=== PATIENT | female | born 1930 | race Caucasian/White ===

== ENCOUNTER 2019-02-26 11:12 | Inpatient (IN) ==
[2019-02-26] MEDS ORDERED: CARDIZEM IV ONE (11:30)
[2019-02-26] MEDS ORDERED: NS 500 ML IV ONE (11:36)
[2019-02-26 12:01] LABS: BASO# 0.04 X1000 (0.0-0.2); BASO% 0.4 % (0.0-0.8); EOS# 0.06 X1000 (0.0-0.7); EOS% 0.7 % (0.0-10.0); HEMATOCRIT 44.6 % (37.0-47.0); HEMOGLOBIN 14.4 g/dL (12.0-16.0); IMM GRAN# 0.02 X1000 (0.0-0.04); IMM GRAN% 0.2 % (0.0-0.5); LYMPH# 1.71 X1000 (1.2-3.4); LYMPH% 18.9 % (20.5-51.1); MCH 28.2 PG (27-31); MCHC 32.3 g/dL (33-37); MCV 87.3 FL (81-99); MONO# 0.62 X1000 (0.11-0.59); MONO% 6.9 % (1.7-9.3); MPV 12.3 FL (7.4-10.4); NEUT# 6.58 X1000 (1.4-6.5); NEUT% 72.9 % (42.2-75.2); PLT 199 X1000 (130-400); RBC 5.11 XMIL (4.2-5.4); RDW 15.1 % (11.5-14.5); WBC 9.03 X1000 (4.8-10.8)
[2019-02-26 12:26] LABS: ALB/GLOB RATIO 1.1; ALBUMIN 3.7 g/dL (3.5-5.0); CALCIUM 8.9 mg/dL (8.8-10.2); CREATININE 1.6 mg/dL (0.5-0.9); POTASSIUM 5.2 mmol/L (3.5-5.1); TOTAL BILIRUBIN 0.41 mg/dL (0.20-1.00)
[2019-02-26] MEDS ORDERED: HEPARIN IV ONE (13:07)
[2019-02-26] MEDS ORDERED: HEPARIN IV PRN (13:07)
[2019-02-26] MEDS ORDERED: HEPARIN 25,000 UNITS/D5W 25,000 UNIT/250 ML IV.SOLN IV SCH (13:15)
--- NOTE | 2019-02-26 13:27 | EKG Report ---
Test Performed on : 02/26/2019 11:42:13 AM Test Reason : CP Blood Pressure : / mmHG Vent. Rate : 158 BPM Atrial Rate : 158 BPM P-R Int : 166 ms QRS Dur : 068 ms QT Int : 304 ms P-R-T Axes : 093 -50 138 degrees QTc Int : 492 ms Sinus tachycardia. 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
--- NOTE | 2019-02-26 13:33 | PROVIDER DOCUMENTATION ---
This chart was entered by Lydia Downey Scribe, acting as scribe for Ana Askew MD. HPI-Chest Pain - General Stated Complaint: CP Time Seen by Provider: 02/26/19 11:17 Source: patient, EMS ([facility]) Allergies/Adverse Reactions: Patient Allergies Allergy/AdvReac Type Severity Reaction Status Date / Time No Known Allergies Allergy Verified 02/20/18 21:51 Home Medications: Home Medication List Medication Instructions Recorded Confirmed Last Taken Type ATORVAstatin [Lipitor] 20 mg PO HS #0 tablet 08/05/13 11/20/14 11/19/14 Rx Clopidogrel [Plavix] 75 mg PO DAILY #0 tablet 08/05/13 11/20/14 11/20/14 Rx Furosemide [Lasix] 40 mg PO DAILY #0 tablet 08/05/13 11/20/14 11/20/14 Rx Memantine [Namenda] 10 mg PO BID #0 tablet 08/05/13 11/20/14 11/20/14 Rx Mirtazapine [Remeron] 30 mg PO HS #0 tablet 08/05/13 11/20/14 11/19/14 Rx Propranolol [Inderal] 60 mg PO DAILY #0 tablet 08/05/13 11/20/14 11/20/14 Rx Rivastigmine [Exelon 9.5MG/24Hrs] 1 each TD DAILY #0 patch 08/05/13 11/20/14 11/20/14 Rx Meloxicam [Mobic] 7.5 mg PO BID 11/20/14 11/20/14 11/20/14 History Hydrocodone/Acetaminophen [Pearson 1 each PO Q6H PRN PRN #15 tablet 09/08/15 Unknown Rx 5-325 Tablet] Losartan Potassium [Cozaar] 25 mg PO DAILY #30 tablet 09/08/15 Unknown Rx Cyclobenzaprine HCl [Flexeril] 5 mg PO BID PRN #15 tab 02/20/18 Unknown Rx - History of Present Illness-CP Nature of Presenting Problem: 88 yowf presents to the ed with c/o chest pain bilateral arm pain, back pain, nausea and diaphoresis with onset last night. pt family called ems this am ([facility]) due to sx when they went to check on the pt in her home. pt on exam is lying in bed and looks to be in no distress Location: reports: other (left anterior) Chest Pain Radiation: reports: arms (bilateral), back Quality of Pain: reports: aching Severity in ED: mild Onset/Duration: last night Timing: still present, improving, intermittent Context/Activities at Onset: reports: light activity Modifying Factors: improves with: nothing Associated Symptoms: reports: back pain, diaphoresis, nausea. denies: dizziness, shortness of breath, vomiting Nitro Today/Relief: 0.4 mg x 2, provided by EMS, mild relief Aspirin Treatment Today: 325 mg x 1, provided by ED Prior Chest Pain/Cardiac Workup: reports: cardiac cath, other (cabg) Similar Symptoms Previously?: Yes Recently Seen Here or By Another Healthcare Provider: No Review of Systems - Adult - REVIEW OF SYSTEMS - ADULT Constitutional: reports: no symptoms reported Eyes: reports: no symptoms reported Ears, Nose, Mouth & Throat: reports: no symptoms reported Cardiovascular: reports: see HPI, chest pain, palpitations. denies: syncope Respiratory: denies: shortness of breath, wheezing Gastrointestinal: reports: nausea. denies: abdominal pain, diarrhea, vomiting Genitourinary: reports: no symptoms reported Musculoskeletal: reports: see HPI, back pain, other (bilateral arm pain) Integumentary: reports: no symptoms reported Neurological: denies: dizziness/vertigo, headache/migraines Psychiatric: reports: no symptoms reported Endocrine: reports: no symptoms reported Hematologic/Lymphatic: reports: no symptoms reported Allergic/Immunologic: reports: no symptoms reported All Other Systems: Reviewed and Negative Past History - Adult - PAST MEDICAL HISTORY-ADULT Review of Records: reports: Old Records Reviewed, Nursing Assessment Review, Medications Reviewed, Social history reviewed & non-contributory. Cardiovascular: reports: CAD, HTN Respiratory: reports: denies history Gastrointestinal: reports: denies history Genitourinary: reports: denies history Musculoskeletal: reports: denies history Neurological: reports: dementia Psychiatric: reports: denies history Endocrine/Immune: reports: cancer (breast) Other Conditions: reports: denies history - PRIOR SURGERIES/PROCEDURES Surgical/Procedure History: reports: CABG, other (lumpectomy) - IMMUNIZATION STATUS Childhood Immunizations: See Nurse Assessment Flu Vaccine: See Nurse Assessment - FAMILY HISTORY Family History: reviewed, not pertinent - SOCIAL HISTORY Smoking: denies Substance Use: denies Living Situation: alone Physical Exam-General - PHYSICAL EXAM-ADULT Initial Vital Signs Reviewed: Yes (noted bp-92/73 hr-156) - CONSTITUTIONAL General Appearance: appears well, alert, no apparent distress, obese - EYES Eyes: PERRL/EOMI, pink conjunctivae - HEAD, EARS, NOSE, MOUTH & THROAT HENMT: moist mucous membranes - NECK Neck: non-tender, full range of motion, supple, normal inspection - RESPIRATORY Respiratory: chest non-tender, lungs clear, normal breath sounds - CARDIOVASCULAR Cardiovascular: other (tachycardia with irregular heart beats) - CHEST (BREASTS) Chest/Breast: other (well healed cabg scar) - GASTROINTESTINAL (ABDOMEN) Abdominal Exam: normal bowel sounds, non tender, soft, other (c/o nausea) - GENITOURINARY Female Genitalia/Pelvic Exam: deferred Rectal Exam: deferred Hemoccult Exam: deferred - LYMPHATIC Lymphatic: no adenopathy - MUSCULOSKELETAL Back Exam: no CVA tenderness, no vertebral tenderness Extremity: normal range of motion, non-tender, normal inspection - SKIN Integumentary: normal color, normal turgor, warm/dry - NEUROLOGIC Neurologic: grossly normal - PSYCHIATRIC Psych/Mental Status: normal mood/affect, normal thought content, normal thought process, oriented x 3 - HEART Score HEART Score: History: Highly Suspicious HEART Score: ECG: Non-Specific Repolarization Disturbance/LBBB/PM HEART Score: Age: > or = 65 Years HEART Score: Risk Factors for Atherosclerotic Disease: > or = 3 Risk Factors or History of Atherosclerotic Disease HEART Score: Troponin: > or = 3x Normal Limit Total HEART Score:: 9 Progress - PLAN OF CARE/RESULTS Progress/Plan/Lab Results: Vital Signs - 8 hr 02/26/19 11:15 02/26/19 12:02 Temperature 97.6 F Pulse Rate 161 H 72 Respiratory Rate 22 20 Blood Pressure 101/58 113/54 O2 Sat by Pulse Oximetry 96 95 Laboratory Results - last 24 hr 02/26/19 02/26/19 02/26/19 11:40 11:40 11:40 WBC 9.03 RBC 5.11 Hgb 14.4 Hct 44.6 MCV 87.3 MCH 28.2 MCHC 32.3 L RDW Std Deviation 15.1 H Plt Count 199 MPV 12.3 H Immature Gran % (Auto) 0.2 Neut % (Auto) 72.9 Lymph % (Auto) 18.9 L Lumpkin % (Auto) 6.9 Eos % (Auto) 0.7 Baso % (Auto) 0.4 Immature Gran # (Auto) 0.02 Neut # (Auto) 6.58 H Lymph # (Auto) 1.71 [place]kin # (Auto) 0.62 H Eos # (Auto) 0.06 Baso # (Auto) 0.04 Sodium 137 Potassium 5.2 H Chloride 103 Carbon Dioxide 20 L Anion Gap 14 BUN 31 H Creatinine 1.6 H Estimated GFR/1.73 m2 30 BUN/Creatinine Ratio 19 Glucose 134 H Calculated Osmolality 282 Calcium 8.9 Total Bilirubin 0.41 AST 55 H ALT 16 Alkaline Phosphatase 86 Total Protein 7.0 Albumin 3.7 Globulin 3.3 Albumin/Globulin Ratio 1.1 Amylase 73 Lipase 47 TSH 1.16 Orders Category Date Time Status Hold Pressure Notice (Heparin Protocol) ORDERED Care 02/26/19 13:08 Active Observe for Bleeding (Heparin Protocol) ORDERED Care 02/26/19 13:08 Active Saline Loc DIRECTED Care 02/26/19 11:35 Active Weigh Patient NOW Care 02/26/19 13:08 Active NPO Diet 02/26/19 11:35 Active cxr [CHEST-PORTABLE] [RAD] Stat Exams 02/26/19 14:01 Ordered AMYLASE [CHEM] Stat Lab 02/26/19 11:40 Completed BASIC METABOLIC PANEL [CHEM] Routine Lab 02/27/19 06:00 Ordered CBC WITH DIFF [HEME] Lab 02/27/19 06:00 Uncollected CBC WITH DIFF [HEME] Lab 02/28/19 06:00 Uncollected CBC WITH DIFF [HEME] Lab 03/01/19 06:00 Uncollected CBC WITH ELECTRONIC DIFF [HEME] Stat Lab 02/26/19 11:40 Completed COMPREHENSIVE METABOLIC PANEL [CHEM] Stat Lab 02/26/19 11:40 Completed LIPASE [CHEM] Stat Lab 02/26/19 11:40 Completed MAGNESIUM [CHEM] Routine Lab 02/27/19 06:00 Ordered PRO B-NATRIURETIC PEPTIDE Routine Lab 02/26/19 14:09 Ordered PROTIME WITH INR [COAG] Stat Lab 02/26/19 11:40 Received PTT HEPARIN PROTOCOL [COAG] Lab 02/26/19 11:40 Received PTT HEPARIN PROTOCOL [COAG] Lab 02/26/19 20:00 Uncollected PTT HEPARIN PROTOCOL [COAG] Lab 02/27/19 02:00 Uncollected PTT HEPARIN PROTOCOL [COAG] Lab 02/27/19 08:00 Uncollected PTT [COAG] Stat Lab 02/26/19 11:40 Received TROPONIN T HIGH SENSITIVITY Stat Lab 02/26/19 11:40 Received TSH Stat Lab 02/26/19 11:40 Completed URINALYSIS W/POSS RFLX CULT [URINALYSIS] Stat Lab 02/26/19 11:35 Uncollected 0.9% Sodium Chloride Inj [Ns] 500 ml Med 02/26/19 11:36 Discontinued IV 999 mls/hr Apixaban [Eliquis] Med 02/26/19 14:15 Active 2.5 mg PO BID Aspirin Med 02/26/19 14:15 Discontinued 81 mg PO DAILY Clopidogrel [Plavix] Med 02/27/19 09:00 Ordered 75 mg PO DAILY Diltiazem [Cardizem] Med 02/26/19 11:30 Discontinued 10 mg IV NOW ONE Furosemide [Lasix] Med 02/26/19 14:06 Stop Req 20 mg IV NOW ONE Furosemide [Lasix] Med 02/26/19 14:15 Ordered 40 mg IV DAILY Heparin Med 02/26/19 13:07 Discontinued See Dose Instructions IV NOW ONE Heparin Med 02/26/19 13:07 Discontinued See Dose Instructions IV PRN PRN Heparin 25,000 Units/D5w Med 02/26/19 13:15 Discontinued 25,000 unit in 250 ml IV 12 unit/kg/hr Losartan [Cozaar] Med 02/27/19 09:00 Ordered 25 mg PO DAILY Metoprolol [Lopressor] Med 02/26/19 14:15 Active 50 mg PO BID EKG [EKG] Routine Ther 02/27/19 06:00 Ordered EKG [EKG] Stat Ther 02/26/19 11:42 Draft EKG [EKG] Stat Ther 02/26/19 13:33 Draft Echo Spec/Color Doppler Routine Ther 02/26/19 14:02 Ordered Result Diagrams: 02/26/19 11:40 02/26/19 11:40 - REASSESSMENT Reassessment #1 Time Reassessed: 12:52 (pt has elevated trop and dr askew is at bedside speaking with pt and family) Status: unchanged - EKG 1 Time of EKG reading by physician:: 11:42 EKG Read and Signed by:: Ana Askew EKG Interpretation (*Must complete 3 of following elements*): Abnormal Rate: 158 Rhythm: sinus tachycardia Vista: left (deviation) QRS: normal MA Interval: normal Comments: marked ST abnormality, poss inferior subendocardial injury - CONSULTS/PCP/HOSPITALIST Notification #1 *Consult/PCP/Hospitalist*: Dr Hanks Time Discussed: 13:30 Consult Disposition: Will see in ED (Dr Hanks saw patient in ER< wanted patient admitted to hospital) #2 Consult: Dr Evangelista Consult Disposition: Will see in ED (he said he will see patient in ER) Departure - Departure Date of Disposition Decision: 02/26/19 Time of Disposition Decision: 13:33 DIAGNOSIS: NSTEMI (non-ST elevated myocardial infarction) Disposition: ADMITTED INPATIENT 09 Certified Medical Emergency: Emergent Condition: Good Referrals and Follow-Ups: Yadi Evangelista MD [Primary Care Provider] - - Critical Care Note This patient required my direct & personal management of CC.: Yes Total Time (mins): 36 Critical Care Statement: This patient required my direct personal management to treat or rule out processes, the absence of which, could potentiallly result in sudden, clinically significant life or limb threatening deterioration. Attestation - Physician/ MADELIN Attestation Patient care was provided by Advanced Practice Provider:: No The physician spent face to face time with patient:: Yes Advanced Practice Provider documentation review:: Supervising physician onsite and consulted in the evaluation and care of this patient. The physician did have a face to face encounter with the patient. This chart was documented by the indicated scribe, (Lydia Downey Scribe) and accurately reflects the services I performed and decisions made by Otilio pinedo Mai Huu, MD, as attested by the provider's signature.
--- NOTE | 2019-02-26 14:03 | EKG Report ---
Test Performed on : 02/26/2019 1:56:00 PM Test Reason : repeat Blood Pressure : / mmHG Vent. Rate : 078 BPM Atrial Rate : 078 BPM P-R Int : 184 ms QRS Dur : 074 ms QT Int : 416 ms P-R-T Axes : 026 -20 138 degrees QTc Int : 474 ms Normal sinus rhythm. ST & T wave abnormality, consider anterolateral ischemia Prolonged QT Abnormal ECG When compared with ECG of 26-FEB-2019 11:42, (Unconfirmed) Vent. rate has decreased BY [address] less depressed in Inferior leads T wave inversion no longer evident in Inferior leads Unconfirmed Result
[2019-02-26] MEDS ORDERED: LASIX IV ONE ×2 (14:06→17:08)
[2019-02-26] MEDS ORDERED: ELIQUIS PO SCH (14:15)
[2019-02-26] MEDS ORDERED: LASIX IV SCH (14:15)
[2019-02-26] MEDS ORDERED: LOPRESSOR PO SCH (14:15)
[2019-02-26] MEDS ORDERED: ASPIRIN PO SCH (14:15)
[2019-02-26 14:17] LABS: INR 1.06; PROTIME 13.9 Seconds (11.0-16.0)
[2019-02-26 14:18] LABS: PTT 28.3 Seconds (22.3-41.8)
--- NOTE | 2019-02-26 14:24 | Diag Imaging Result Doc PS360 ---
EXAM: CHEST-PORTABLE 02/26/2019 HISTORY: dyspnea TECHNIQUE: AP portable at 1410 COMMENT: There is platelike opacity present in the right middle lobe. This was also present on 12/19/2016 and is presumably fibrotic. The inspiration is actually less optimal on the current study than on the previous. IMPRESSION: No acute disease. Electronically signed by Luc Campbell 02/26/2019 2:22 PM
--- NOTE | 2019-02-26 14:44 | CARDIOLOGY CONSULTATION ---
DATE: 02/26/2019 HISTORY OF PRESENT ILLNESS: Ms Reynoso is an 88-year-old lady, who has had coronary artery bypass grafting, 28 years back at [facility], and subsequently 16 years back had intervention there performed as well. She has been doing fairly well. Has been active at home. For the last week or so, she has been complaining of not feeling well and fatigued. Last night and this morning she complained of having retrosternal chest discomfort with significant palpitations and heaviness in both arms. She broke out in a cold sweat. She was brought by EMS to the emergency room, was noted to be in atrial fibrillation with rapid ventricular rate. She was given Cardizem 10 mg IV and patient converted to sinus rhythm. Electrocardiogram revealed atrial fibrillation with ST-T depressions in the anterior leads. Subsequent electrocardiogram in sinus rhythm is pending. At the time of my examination, patient was comfortable. The discomfort which she has had yesterday as well as this morning has decreased. There is no history of syncope. REVIEW OF SYSTEM: General: A 14-point review of systems was done. GI System: There is no history of nausea, vomiting, diarrhea. There is no history of hematemesis or melena. Central nervous system: No focal weakness to suggest a CVA or TIA. System: There is no dysuria or hematuria. PAST MEDICAL HISTORY: 1. Coronary artery disease, status post coronary artery bypass grafting 28 years back in [place]. Subsequent 16 years back intervention performed. 2. History of breast lumpectomy. 3. Alzheimer dementia. 4. Essential hypertension. 5. History of breast cancer. 6. Mixed hyperlipidemia. 7. Osteoarthritis. HOME MEDICATIONS: Include Plavix 75 mg a day, Lasix 40 mg a day, Atorvastatin 20 mg a day, Namenda 10 mg p.o. b.i.d., Remeron 30 mg p.o. at bedtime, propranolol 60 mg daily, hydrocodone as needed, losartan 25 mg a day. ALLERGIES: She is not known to be allergic to any medications. SOCIAL HISTORY: She does not smoke. Does not drink. FAMILY HISTORY: Father at the age of 59; had renal cell carcinoma. Mother at the age of 84. There is family history of coronary artery disease. PHYSICAL EXAMINATION: Vital Signs: Blood pressure 113/54; when she came in, blood pressure was 188/78. Neck: Jugular venous pressure was elevated. First and second heart sounds were heard. No murmurs. Respiratory System: Distant breath sounds with scattered wheeze. Abdomen: Abdomen was soft, nontender. There was no guarding or rigidity. Bowel sounds were heard. Central nervous system: Alert, was moving all 4 extremities. Extremities: Examination of extremities revealed no pedal edema. LABORATORY EXAMINATION: Sodium 137, potassium 5.2. BUN 31, creatinine 1.6. Magnesium we will check, troponin, as the current cardiac enzyme has not yet been resulted. Next, WBC 9, hemoglobin 14, hematocrit 44, platelet count of 199. X-RAYS: Chest x-ray is pending. ASSESSMENT: Ms. Radha Reynoso is an 88-year-old lady with history of coronary artery disease, coronary artery bypass grafting, breast cancer in the past, history of hypertension, who has not been feeling well for the last week or so, fatigue and lack of energy. Had chest pain last night and this morning, associated chest pain with significant palpitations and discomfort going down to both arms. The patient had significant ST depression associated with the atrial fibrillation. She was noted to be in atrial fibrillation rapid ventricular rate. She received 1 dose of Cardizem intravenous and she is back in sinus rhythm. PLAN: 1. She came in with atrial fibrillation rapid ventricular rate. For stroke prophylaxis, she needs to be anticoagulated. Given her age and creatinine of 1.4, we will put her on Eliquis 2.5 mg twice daily. 2. Since she has been on Plavix, I will continue with the Plavix and avoid the aspirin 3. As far as her heart rhythm is concerned, she has been on propranolol 60 mg daily. We will change the propranolol to Lopressor 50 mg twice daily. 4. Hyperlipidemia. Continue with Lipitor. 5. Hypertension. She is also on losartan. I have not made any changes. Examination revealed bilateral wheeze. Chest x-ray is pending, and jugular venous pressure was elevated. We will add Lasix 20 mg IV to her medical regimen. 6. Will rule out OK by serial cardiac enzymes. Thank you for the consult. cc: MD HENRI Morales
[2019-02-26 15:27] LABS: CK INDEX 12.2 (0.0-2.5); CK-MB 22.85 ng/mL (0.0-5.0)
[2019-02-26] MEDS ORDERED: SODIUM CHLORIDE 0.9% INJ PRN (16:28)
[2019-02-26] MEDS ORDERED: TYLENOL PO PRN (16:28)
[2019-02-26] MEDS ORDERED: PHENERGAN IV PRN (16:28)
[2019-02-26] MEDS ORDERED: NORCO-5 PO PRN (16:28)
--- NOTE | 2019-02-26 17:29 | ECHO REPORT ---
ORDER DATE: 02/26/2019 INDICATION: Chest pain, bypass, hypertension. M-MODE MEASUREMENTS: Left ventricle end diastole: 4.8. Left ventricle end systole: 3.6. Posterior wall: 0.9. Interventricular septum: 1.0. Left atrium: 4.3. Aortic diameter: 3.0. SUMMARY OF 2-DIMENSIONAL IMAGIN. Left ventricular function is significantly impaired. Global ejection fraction estimated at 30% to 35%. There is akinesis of the apical anterior and distal lateral wall of the left ventricle. There is relatively preserved contractility of the inferior wall and the basal to mid anterior wall. 2. The possibility of Takotsubo cardiomyopathy cannot be entirely excluded. 3. The aortic valve looks normal. Color flow mapping unremarkable. 4. The mitral valve looks normal. Color flow mapping indicates a mild degree of regurgitation. 5. Pulse wave Doppler of mitral inflow shows a pseudonormal pattern with tall E-wave and short A- wave. 6. Tissue Doppler of septal and lateral mitral annulus averages 6 cm. 7. Left atrial pressure may be elevated. 8. The tricuspid valve shows a mild degree of regurgitation. Pulmonary pressure is estimated at 40 mmHg. 9. The pulmonic valve is unremarkable. 10.There is no pericardial effusion, no mass, and no thrombus. 11.The right-sided chambers do not appear to be particularly enlarged. 12.The aortic valve shows a moderate degree of regurgitation without aortic stenosis. Clinical correlation recommended. cc: MD Allison Townsend PA M. Neel Roberts, MD
[2019-02-26 17:56] LABS: URINE SOURCE CLEAN CATCH
[2019-02-26 18:05] LABS: BILIRUBIN URINE NEGATIVE (NEGATIVE); BLOOD URINE SMALL (NEGATIVE); COLOR YELLOW; GLUCOSE URINE NEGATIVE (NEGATIVE); KETONE URINE NEGATIVE (NEGATIVE); LEUKOCYTES URINE LARGE (NEGATIVE); NITRITE URINE POSITIVE (NEGATIVE); PH URINE 5.5; PROTEIN URINE TRACE mg/dL (NEGATIVE); SP GRAVITY URINE 1.016; TURBIDITY URINE HAZY (CLEAR); UROBILINOGEN URINE NORMAL (NORMAL)
[2019-02-26 18:20] LABS: UR EPITHELIAL CELLS <10 /HPF (<10); URINE BACTERIA 4+ /HPF; URINE RBC <10 /HPF (<10); URINE WBC TNTC /HPF (<10)
[2019-02-26 18:21] LABS: URINE YEAST NONE SEEN
[2019-02-26 18:22] LABS: URINE CASTS NONE SEEN; URINE CRYSTALS NONE SEEN
[2019-02-26] MEDS: REMERON PO SCH (21:55)
[2019-02-26] MEDS: NAMENDA PO SCH (21:56)
[2019-02-26] MEDS: RANEXA PO SCH (21:56)
[2019-02-26] MEDS: SEROQUEL PO SCH (21:56)
[2019-02-26] MEDS: ELIQUIS PO SCH (21:56)
[2019-02-26] MEDS: LOPRESSOR PO SCH (21:56)
[2019-02-26] MEDS: FISH OIL CONCENTRATE PO SCH (21:56)
--- NOTE | 2019-02-26 21:56 | HISTORY AND PHYSICAL ---
CHIEF COMPLAINT: Chest pain. HISTORY OF PRESENT ILLNESS: Ms. Radha Reynoso is an 88-year-old lady who is well known to me. She has a history of multiple medical problems including coronary artery disease, status post coronary artery bypass graft surgery in the remote past, history of breast cancer, Alzheimer dementia, essential hypertension, mixed hyperlipidemia, and chronic renal insufficiency. Over the past several days, she has had episodes of epigastric and substernal discomfort without radiation of pain to her neck or arm. Her symptoms have been occurring both at rest and with exertion. Her symptoms come and go. Upon arrival to the ER, she was noted to be in atrial fibrillation with rapid ventricular rate. She was given a bolus of diltiazem 10 mg IV, and she spontaneously converted back to normal sinus rhythm. She continues with intermittent episodes of chest pain. Her CPK was 188, and the high-sensitivity high sensitivity troponin was 264. EKG demonstrated normal sinus rhythm with nonspecific T-wave changes. PAST MEDICAL HISTORY: Vascular dementia, mixed hyperlipidemia, chronic renal insufficiency, essential hypertension, ischemic heart disease, previous TIA, hypertension. PAST SURGICAL HISTORY: Coronary artery bypass graft surgery, breast lumpectomy. ALLERGIES: No known drug allergies. FAMILY HISTORY: Her father of complications of renal cell carcinoma at age 59. Her mother had hypertension and coronary artery disease and of an OK at age 84. One sister from complications of ovarian cancer. SOCIAL HISTORY: She denies the use of tobacco, alcohol, or illicit drugs. MEDICATIONS: Clopidogrel 75 mg daily, Flexeril 5 mg b.i.d., Lasix 40 mg daily, Casselberry 5/325, 1 every 6 hours p.r.n. pain, meloxicam 7.5 mg daily, Namenda 10 mg b.i.d., Remeron 30 mg at bedtime, omega-3 fatty acids 1000 mg b.i.d., propranolol 60 mg daily, Seroquel 25 mg at bedtime, Exelon 9.5 mg 1 patch to the chest daily. REVIEW OF SYSTEMS: She denies any recent weight gain or weight loss.HEENT: She wears glasses. She is hard of hearing. Cardiovascular: See HPI. Pulmonary: See HPI. GI: No reflux, dysphagia, melena, hematochezia, change in bowel habits or rectal bleeding. Endocrine: No polyuria. No polydipsia. No cold or heat intolerance. Skin: No easy bruisability. : No leakage of urine with coughing or laughing. Neurologic: No migraines or seizures. PHYSICAL EXAMINATION: GENERAL: This is a chronically ill-appearing 88-year-old lady in no apparent distress. VITAL SIGNS: Temperature 97.6 pulse 72, respirations 20, BP 113/54. HEENT: Fundi with arteriolar wall thickening. Pupils equal, round and reactive to light. Extraocular eye movements intact. TMs without bullae. NECK: Supple. No masses, JVD or bruits. CV: Regular rate and rhythm. LUNGS: Distant breath sounds with increased period of expiration. ABDOMEN: Soft, nontender, with active bowel sounds. EXTREMITIES: Trace edema. NEUROLOGIC: She is awake and easily arousable. She is oriented to name, place, and time. She follows simple commands. She moves all extremities grossly. LABORATORY DATA: Various laboratory studies were obtained. A CBC demonstrated a white count of 9, hemoglobin 14, hematocrit 44, and a platelet count of 199,000. Electrolytes demonstrated the following: Sodium 137, potassium 5.2, BUN 31, creatinine 1.6, and glucose 134. High-sensitivity troponin was 264. ProBNP was 5085. Her CK was 188. ASSESSMENT AND PLAN: 1. Paroxysmal atrial fibrillation. Upon arrival to the ER, she was in atrial fibrillation with rapid ventricular response. She was given diltiazem 10 mg IV x1 dose. She spontaneously converted back to normal sinus rhythm. She had a CHADS-2 vascular score of 5. She has had no previous history of rheumatic heart disease. I believe that it is reasonable to begin low- dose Eliquis 2.5 mg b.i.d. We will stop the propranolol, as Dr. Hanks has started Lopressor 50 mg b.i.d. for rate control. 2. Unstable angina. I am really not sure that this represents an acute myocardial infarction. CKs are normal. Troponin is elevated, but she has chronic renal insufficiency. We will continue Eliquis and beta blockers and will rule her out for myocardial ischemia by serial enzymes. I have had a long discussion with her daughters, who want to try to maximize her quality of life. She is really not a candidate for redo bypass surgery or potentially even intervention. Potentially she would benefit from Ranexa and Imdur. 3. Mixed hyperlipidemia. She had significant muscle weakness and muscle aches on atorvastatin. We stopped the atorvastatin. At this time I believe that the potential adverse consequences of statin therapy are greater than the lifetime benefit of the medicine. I believe statins are contraindicated in this particular case. 4. End-of-life issues. Ms. Reynoso has requested that in the setting of a cardiopulmonary arrest, no heroic measures should be undertaken. A [id number] level 1 has been established. 5. Given her comorbid conditions and clinical complaints, I believe that it is reasonable to admit her to [facility]. At this point in time, I anticipate that she will be in the hospital for at least 1 midnight, and I will therefore place her on outpatient status with observation services. Low-dose Eliquis will serve as appropriate deep venous thrombosis prophylaxis. cc: Joyce Evangelista MD
[2019-02-27 05:48] LABS: CREATININE 1.2 mg/dL (0.5-0.9); MAGNESIUM 2.4 mg/dL (1.5-2.7); POTASSIUM 4.8 mmol/L (3.5-5.1)
[2019-02-27 06:58] LABS: CK INDEX 16.4 (0.0-2.5); CK-MB 137.8 ng/mL (0.0-5.0)
--- NOTE | 2019-02-27 08:53 | EKG Report ---
Test Performed on : 02/27/2019 06:50:00 AM Test Reason : afib Blood Pressure : / mmHG Vent. Rate : 071 BPM Atrial Rate : 071 BPM P-R Int : 170 ms QRS Dur : 078 ms QT Int : 428 ms P-R-T Axes : 027 024 181 degrees QTc Int : 465 ms Normal sinus rhythm. with sinus arrhythmia. ST & T wave abnormality, consider inferior ischemia ST & T wave abnormality, consider anterolateral ischemia Abnormal ECG When compared with ECG of 26-FEB-2019 13:56, (Unconfirmed) No significant change was found Confirmed by Scott SCHULTZ, Seamus Arias ([id number]) on 02/28/2019 10:26:00 PM
[2019-02-27] MEDS ORDERED: PLAVIX PO SCH (09:00)
[2019-02-27] MEDS ORDERED: COZAAR PO SCH (09:00)
[2019-02-27] MEDS: ENTRESTO 24 MG-26 MG TABLET PO SCH ×2 (09:55→21:56)
[2019-02-27] MEDS: EXELON 9.5MG/24HRS TD SCH (09:55)
[2019-02-27] MEDS: NAMENDA PO SCH ×2 (09:55→21:55)
[2019-02-27] MEDS: FISH OIL CONCENTRATE PO SCH ×2 (09:56→21:55)
[2019-02-27] MEDS: IMDUR PO SCH (09:56)
[2019-02-27] MEDS: RANEXA PO SCH ×2 (09:56→21:56)
[2019-02-27] MEDS: LOPRESSOR PO SCH ×2 (09:56→21:56)
[2019-02-27] MEDS: ELIQUIS PO SCH ×2 (09:57→21:55)
[2019-02-27] MEDS: LASIX IV SCH (09:57)
--- NOTE | 2019-02-27 12:54 | CARDIOLOGY PROGRESS NOTE ---
DATE: 02/27/2019 CHIEF COMPLAINT: Shortness of breath, chest discomfort. SUBJECTIVE: Mr. Reynoso is a pleasant 88-year-old female who came in to the hospital on 02/26 complaining of chest discomfort and shortness of breath. Her cardiac enzymes have become positive up to 838 units of CPK with a CK-MB fraction of 137.8 and a high sensitivity troponin that went from 264 to 1064 ng/L. Electrocardiogram showed nonspecific ST abnormality at the time of presentation. Evidently, she has suffered a non-ST myocardial infarction. This morning, she is feeling better. Her daughter is at the bedside. She seems to be in no distress. OBJECTIVE: Vital signs: Blood pressure 150/58, temperature 97.6, pulse 79, respirations 20. General: She is awake, alert, oriented, in no distress. HEENT: Unremarkable. Chest: Sounds fairly clear to auscultation and percussion. Heart: Sounds are regular and rhythmic. I do not hear a gallop or murmur. Abdomen: Nontender. Extremities: Showed slight edema in the left ankle. No obvious DVT or redness or coolness in the legs. Color is normal. Neurologic exam: She seems to be awake and follows commands. She is conversant, seems to be appropriate. BLOOD WORK: Today, sodium 140, potassium 4.8, BUN 28, creatinine 1.2. IMPRESSION: 1. Patient has suffered a [id number] myocardial infarction. 2. Patient has history of severe coronary heart disease, previous coronary artery bypass surgery. 3. Hypertension. 4. Hyperlipidemia. 5. History of vascular dementia. 6. Osteoarthritis. RECOMMENDATIONS: At this time, we will try to optimize her medications. We will keep her on nitrates, anticoagulants, vasodilators, and beta-blockers. We will see how she does. She is also on aspirin. At this time, she seems to be hemodynamically stable. cc: MD Joyce Townsend MD
--- NOTE | 2019-02-27 13:38 | PROGRESS NOTE ---
DATE: 02/27/2019 SUBJECTIVE: Ms. Reynoso has a history of paroxysmal atrial fibrillation. Upon presentation to the ER yesterday, she was noted to be in atrial fibrillation with rapid ventricular response. She was given IV diltiazem. She spontaneously converted back to normal sinus rhythm. She has remained in normal sinus rhythm throughout the evening. Her heart rate has ranged from 70 to 85. She reports that she is breathing more comfortably. She has had good urine output overnight with IV Lasix. She had been having shortness of breath with activity and increasing edema but denied any PND or orthopnea. Her echocardiogram demonstrated global hypokinesis with an ejection fraction of 30 to 35 percent. There was akinesis of the apical anterior and distal lateral wall of the left ventricle. She has had intermittent episodes of chest pain during the night, but they were much less severe as compared to admission. She has ruled in for myocardial ischemia by serial enzymes. She has had previous coronary artery bypass graft surgery in the remote past and had angioplasty about 17 years ago. OBJECTIVE: Vital Signs: Temperature 97.8 degrees, pulse 76, respirations 16, blood pressure 141/57. Cardiovascular: Regular rate and rhythm. Lungs: Faint crackles in the bases bilaterally. Abdomen: Soft, nontender with active bowel sounds. Extremities: Trace ankle edema. ASSESSMENT AND PLAN: 1. Paroxysmal atrial fibrillation. She has spontaneously converted back to normal sinus rhythm. Heart rate is well controlled on Lopressor 50 mg b.i.d. Her [id number] vascular score was 5. We will continue Xarelto 2.5 mg b.i.d. 2. Acute congestive heart failure secondary to systolic dysfunction. I suspect that she has an ischemic cardiomyopathy. Her echocardiogram demonstrated global hypokinesis with wall motion abnormalities and an ejection fraction of 30 to 35 percent. We will continue a salt and fluid- restricted diet, diurese her with Lasix and I will stop the losartan and transition her to Entresto 1 p.o. b.i.d. 3. Ischemic heart disease with new myocardial infarction. Given her age and overall health, her family wants to pursue conservative measures only. We will continue Xarelto 2.5 mg b.i.d., titrate upward on the Lopressor as tolerated and I will add Imdur. She has had significant myalgias and liver abnormalities on statins in the past. Given her age, I believe that the potential risks of statin therapy outweighed the lifetime benefit of a statin and that the statins are contraindicated. 4. End of life issues. Ms Reynoso does have a Living Will. Will she has stated that in the event of a cardiopulmonary arrest, that no heroic measures should be undertaken. A No Code Blue level 1 has been established. cc: Joyce Evangelista MD
[2019-02-27] MEDS ORDERED: PERICOLACE PO PRN (14:24)
[2019-02-27] MEDS: REMERON PO SCH (21:55)
[2019-02-27] MEDS: SEROQUEL PO SCH (21:55)
--- NOTE | 2019-02-28 06:41 | EKG Report ---
Test Performed on : 02/28/2019 06:12:08 AM Test Reason : afib, chest pain Blood Pressure : / mmHG Vent. Rate : 061 BPM Atrial Rate : 061 BPM P-R Int : 182 ms QRS Dur : 086 ms QT Int : 466 ms P-R-T Axes : 037 -02 167 degrees QTc Int : 469 ms Normal sinus rhythm. with sinus arrhythmia. Septal infarct , age undetermined ST & T wave abnormality, consider inferior ischemia ST & T wave abnormality, consider anterolateral ischemia Abnormal ECG When compared with ECG of 27-FEB-2019 06:50, (Unconfirmed) Septal infarct is now present Confirmed by Scott SCHULTZ, Seamus Arias ([id number]) on 02/28/2019 10:26:47 PM
--- NOTE | 2019-02-28 09:23 | PROGRESS NOTE ---
DATE: 02/28/2019 SUBJECTIVE: Mrs. Reynoso was admitted to [facility] with a non ST-segment elevation [place]. She is resting comfortably. She denies any further episodes of chest tightness, chest pressure, or other anginal equivalents. We had started Ranexa 500 mg b.i.d. and Imdur 30 mg daily. She has a history of paroxysmal atrial fibrillation. She was in atrial fibrillation with RVR on admission. She spontaneously converted to normal sinus rhythm. She has remained in normal sinus rhythm. She has new-onset congestive heart failure secondary to ischemic cardiomyopathy. Her echocardiogram demonstrated an EF of 30% to 35% with global hypokinesis. She has been on a salt and fluid restricted diet, and diuresis with Lasix. She is breathing much more comfortably. She denies any PND or orthopnea. OBJECTIVE: Vital Signs: Her O2 saturations are ranging from 98% to 99% on room air, temperature 97.6 degrees, pulse 63, respirations 16, BP 132/57. CV: Regular rate and rhythm. Lungs: Clear. Abdomen: Soft, nontender with active bowel sounds. No hepatosplenomegaly. No abdominal bruits. ASSESSMENT AND PLAN: 1. Non ST-segment elevation myocardial infarction. Clinically, she has known severe 3-vessel disease. She is not a candidate for angioplasty or redo bypass surgery. We will continue Eliquis, beta blockade with Lopressor 150 mg twice daily, and will titrate upward on the Ranexa as indicated. I will increase activity. 2. Acute congestive heart failure secondary to systolic dysfunction. Clinically, she is breathing comfortably. We will continue a salt and fluid-restricted diet, and gentle diuresis with Lasix. We will monitor kidney function on the Entresto. cc: Joyce Evangelista MD
[2019-02-28] MEDS: LASIX IV SCH (10:30)
[2019-02-28] MEDS: IMDUR PO SCH (10:30)
[2019-02-28] MEDS: EXELON 9.5MG/24HRS TD SCH (10:30)
[2019-02-28] MEDS: ENTRESTO 24 MG-26 MG TABLET PO SCH ×2 (10:30→20:00)
[2019-02-28] MEDS: FISH OIL CONCENTRATE PO SCH ×2 (10:30→20:00)
[2019-02-28] MEDS: RANEXA PO SCH ×2 (10:30→20:00)
[2019-02-28] MEDS: NAMENDA PO SCH ×2 (10:30→20:00)
[2019-02-28] MEDS: ELIQUIS PO SCH ×2 (10:30→20:00)
[2019-02-28] MEDS: LOPRESSOR PO SCH ×2 (10:30→20:00)
[2019-02-28 10:50] LABS: CALCIUM 8.8 mg/dL (8.8-10.2); CREATININE 1.5 mg/dL (0.5-0.9); POTASSIUM 4.5 mmol/L (3.5-5.1)
[2019-02-28 11:18] LABS: CK INDEX 7.9 (0.0-2.5); CK-MB 22.66 ng/mL (0.0-5.0)
--- NOTE | 2019-02-28 12:15 | CARDIOLOGY PROGRESS NOTE ---
DATE: 02/28/2019 CHIEF COMPLAINT: Shortness of breath and chest discomfort. SUBJECTIVE: Ms. Reynoso seems to be doing better today. She is not having any chest discomfort. She is breathing comfortably. OBJECTIVE: Blood pressure is 132/57, temperature 97.6, pulse 63, respirations 16. She is awake, alert, in no distress. HEENT is normal. Chest sounds clear to percussion and auscultation. Heart sounds are regular and rhythm. No gallop or murmur. Her abdomen is nontender. Extremities showed good pulses. No edema. Neurologic: Follows commands, moves all 4 extremities. DIAGNOSTIC DATA: Blood work is pending. Her urinalysis from admission shows the presence of E. coli which is sensitive to ampicillin and all the other antibiotics. IMPRESSION: 1. The patient presented with a non-ST elevation myocardial infarction. She does have history of severe coronary heart disease with a previous bypass surgery. 2. Urinary tract infection with Escherichia coli, sensitive to ampicillin. 3. Hypertension. 4. Hyperlipidemia. 5. History of vascular dementia. RECOMMENDATIONS: At this time, Ms. Reynoso is progressing well. Dr. Evangelista has ordered blood work for this morning. I would like to also check a CK and troponin just to follow up on that. Her EKG this morning shows sinus rhythm with a diffuse ST-T abnormality, very similar to yesterday. I guess she is going to keep having that pattern for a while. The patient has been started on Ranexa and Entresto. We will just follow her clinically. At this time, I do not anticipate any aggressive form of action. cc: MD Joyce Townsend MD
[2019-02-28] MEDS: AMPICILLIN PO SCH ×2 (13:14→20:00)
[2019-02-28] MEDS: SEROQUEL PO SCH (20:00)
[2019-02-28] MEDS: REMERON PO SCH (20:00)
[2019-03-01 07:26] VITALS: BP 118/59
[2019-03-01] MEDS: LOPRESSOR PO SCH (09:04)
[2019-03-01] MEDS: FISH OIL CONCENTRATE PO SCH (09:04)
[2019-03-01] MEDS: NAMENDA PO SCH (09:04)
[2019-03-01] MEDS: IMDUR PO SCH (09:04)
[2019-03-01] MEDS: ENTRESTO 24 MG-26 MG TABLET PO SCH (09:04)
[2019-03-01] MEDS: AMPICILLIN PO SCH (09:05)
[2019-03-01] MEDS: ELIQUIS PO SCH (09:05)
[2019-03-01] MEDS: RANEXA PO SCH (09:05)
[2019-03-01] MEDS: EXELON 9.5MG/24HRS TD SCH (09:05)
[2019-03-01] MEDS: LASIX IV SCH (09:05)
--- NOTE | 2019-03-04 16:46 | DISCHARGE SUMMARY ---
ADMISSION DATE: 02/26/2019 DISCHARGE DATE: 03/01/2019 DISCHARGE DIAGNOSES: 1. Non ST-segment elevation myocardial infarction. 2. Atrial fibrillation with rapid ventricular response. 3. Atherosclerotic heart disease of the [place] coronary arteries with unstable angina. 4. Mixed hyperlipidemia. 5. Vascular dementia. 6. Acute congestive heart failure secondary to systolic dysfunction. 7. Urinary tract infection. DISCHARGE INSTRUCTIONS: 1. Return to clinic in 1 week to see me, Dr. Jordan Evangelista, in anticipation of a transition of care visit. 2. Activity as tolerated. 3. Healthy heart diet. 4. Medications: Ampicillin 500 mg b.i.d. for 7 days, Eliquis 2.5 mg b.i.d., Entresto , 1 p.o. b.i.d., metoprolol 50 mg b.i.d., Namenda 10 mg b.i.d., Schurz 5 one q. 6 hours p.r.n. pain, Imdur 30 mg daily, Ranexa 500 mg b.i.d., Exelon 9.5 mg 1 patch to the chest daily, Lasix 40 mg daily and may take a second Lasix if gains 2 pounds in 24 hours. Remeron 12 mg at bedtime, fish oil 1000 mg b.i.d., Seroquel 25 mg at bedtime. DISCHARGE PHYSICAL EXAMINATION: General: This is a chronically ill-appearing 88-year-old lady in no apparent distress. She is afebrile. Vital signs are stable. Cardiovascular: Regular rate and rhythm. Lungs: Clear. Abdomen: Soft. Nontender with active bowel sounds. Extremities: Without edema. HOSPITAL COURSE: Ms. Radha Reynoso presented to the ER with chest pain and shortness of breath on arrival to the ER. She was noted to be in atrial fibrillation with rapid ventricular response. She was given diltiazem 10 mg IV in the ER and spontaneously converted back to normal sinus rhythm. She remained in normal sinus rhythm throughout the remainder of her hospitalization. We stopped the propranolol and began Lopressor 50 mg b.i.d. she had a CHADS-VASc score of 7. She had no previous history of rheumatic heart disease. We started her on Eliquis 2.5 mg b.i.d. to reduce the risk of stroke. She does have a longstanding history of ischemic heart disease. She has had previous coronary artery bypass graft surgery in the remote past. She has had angioplasty approximately 15 years ago. She was initially treated with aspirin, topical nitrates, and she ruled in for myocardial ischemia. We felt that she had a [id number] elevation [place]. Given her age and overall health, her family wanted to treat her conservatively. She was not considered a candidate for intervention or redo bypass surgery. We titrated upward on the Lopressor, added Ranexa 500 mg b.i.d. and long-acting Imdur. She had no further episodes of chest pain during her hospitalization. She does have a history of mixed hyperlipidemia. She had diffuse muscle aches and liver abnormalities on multiple statins. Given her age, we felt that the potential risks of statins greatly outweigh their clinical benefit and are therefore contraindicated. She had acute congestive heart failure secondary to systolic dysfunction. We placed her on a salt and fluid restricted diet and gently diuresed her. We added Entresto to improve heart function and cardiac output. She responded well clinically. We will continue her on all with aggressive blood pressure control, a salt and fluid restricted diet and I asked her to weigh daily. She may take a second Lasix if she gains 2 pounds in 24 hours. We did perform an echocardiogram which demonstrated global ejection fraction of 30 to 35 percent with akinesis of the apical anterior and distal lateral wall of the left ventricle. She was with complaint of dysuria, increased urinary frequency and low back pain. We initially treated her with Rocephin. Urine cultures grew out Escherichia coli. We switched her to an additional 7 day course of ampicillin as an outpatient. Ms. Reynoso has stated that in the event of a cardiopulmonary arrest that no heroic measures should be undertaken. A no code blue level 1 was established. cc: Joyce Evangelista MD
== END 2019-03-01 09:30 | disposition home or self-care (01) | DRG 280 ==
LOC: SUPCPDRO → ED 11:12 → 2N 11:12 → OBSVTOIN 15:03
PROVIDERS: ADMIT Internal Medicine; ATTEND Internal Medicine